=== PATIENT | male | born 1950 | race Caucasian/White ===

== ENCOUNTER 2016-11-09 19:45 | Observation (INO) | payer MEDICARE, OTHER ==
--- NOTE | 2016-11-09 20:40 | ED.PDOC ---
History of Present Illness - General Chief Complaint: Head Injury Stated Complaint: head injury Time Seen by Provider: 11/09/16 20:39 Source: patient, RN notes reviewed, Vital Signs reviewed Exam Limitations: no limitations Additional Information: Stated that he was head butted by his cow this afternoon - History of Present Illness Occurred: this morning Severity: moderate Head Injury Location: occipital Method of Injury: other - patient was head butted by his cow behind him [place] his farm Loss of Consciousness: no loss of consciousness Associated Symptoms: headaches, other - neck pain Allergies/Adverse Reactions: Allergies NO KNOWN ALLERGY Allergy (Verified 07/28/15 19:03) Home Medications: Ambulatory Orders Acetaminophen W/ Codeine [Tylenol W/ CODEINE #3] 1 ea PO Q4-6H PRN #30 Methocarbamol [Robaxin] 500 mg PO TID PRN #20 tab 07/28/15 Naproxen Sodium [Naprelan] 375 mg PO BID #14 tab 07/28/15 Omeprazole [Prilosec] 40 mg PO DAILY #10 cap 07/28/15 Review of Systems - Review of Systems Constitutional: States: no symptoms reported EENTM: States: no symptoms reported Respiratory: States: no symptoms reported Cardiology: States: no symptoms reported Gastrointestinal/Abdominal: States: no symptoms reported Genitourinary: States: no symptoms reported Musculoskeletal: States: see HPI - chronic, neck pain Skin: States: no symptoms reported Neurological: States: see HPI Endocrine: States: no symptoms reported, intolerance to heat Past Medical History (General) - Patient Medical History Hx Diabetes: No Hx MRSA: No MRSA Source:: Wound Surgical History: cholecystectomy, other - neck,foot,knee - Vaccination History Hx Tetanus, Diphtheria Vaccination: - unsure Hx Influenza Vaccination: No - Female History Patient : No Family Medical History - Family History Father Family History: No Known Living Status: Physical Exam - Physical Exam General Appearance: Alert, No apparent distress, Other - speech fluent Head Injury: swelling, other - scalp laceration occiput Eye Exam: bilateral normal ENT Exam: hearing grossly normal, no evidence of ENT injury, no dental injury Neck Exam: painful range of motion - lateral flexion, paraspinous muscle tender , spinous processes tender Cardiovascular/Respiratory: no JVD, normal breath sounds, no respiratory distress Gastrointestinal/Abdominal: normal bowel sounds, non tender, soft, no organomegaly Back Exam: normal inspection, no CVA tenderness, no vertebral tenderness Extremity: normal range of motion, non-tender, normal inspection 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, 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, normal speech, PERRL Coordination/Gait: normal finger to nose, normal gait, negative Romberg's sign Motor/Sensory: no motor deficit, no sensory deficit, no pronator drift - [place] Coma Score Best Eye Response ([place]): (4) open spontaneously Best Verbal Response (Cee): (5) oriented Best Motor Response (Cee): (6) obeys commands Cee Total: 15 Progress - EKG/XRAY/CT CT Ordered: Yes - smallmeningioma or subdural hematoma 1cm x0.3 cm Departure - Departure Clinical Impression: Contusion of head Qualifiers: Qualifier Code: (S00.83XA) Contusion of other part of head, initial encounter Headache, post-traumatic Qualifiers: Qualifier Code: (G44.319) Acute post-traumatic headache, not intractable Blunt head injury Qualifiers: Qualifier Code: (S09.8XXA) Other specified injuries of head, initial encounter Time of Disposition: 23:18 - D/W DR. Gonzales -Hospitalist Disposition: Admit Patient Condition: Good Departure Forms: ED Discharge - Pt. Copy, Patient Portal Self Enrollment Referrals: Federico Mondragon MD [Primary Care Provider] - 1-2 Weeks Home Medications: Ambulatory Orders Acetaminophen W/ Codeine [Tylenol W/ CODEINE #3] 1 ea PO Q4-6H PRN #30 Methocarbamol [Robaxin] 500 mg PO TID PRN #20 tab 07/28/15 Naproxen Sodium [Naprelan] 375 mg PO BID #14 tab 07/28/15 Omeprazole [Prilosec] 40 mg PO DAILY #10 cap 07/28/15
--- NOTE | 2016-11-09 20:42 | CT ---
EXAM DESCRIPTION: CT CERVICAL SPINE WITHOUT IV CONTRAST CLINICAL HISTORY: 66-year-old male struck by cow from behind, head hit gate COMPARISON: None. TECHNIQUE: CT cervical spine without contrast. Multiplanar reformatted images were provided. FINDINGS: There is normal alignment of the cervical spine without fracture or subluxation. The facets are normal in alignment bilaterally. The posterior elements including the spinous processes are intact. There is mild straightening of the cervical spine which may be secondary to positioning for the examination. Morphology and attenuation of the vertebral bodies and intervertebral disc spaces is compatible with moderate to severe multilevel degenerative change. Postoperative changes are identified including anterior fusion cervical hardware with bilateral screws traversing the vertebral bodies of C2 C3, C4 and C5 levels. Intervertebral spacing material present with partial vertebral body fusion with residual severe neural foraminal narrowing present at the C2-3. , C4-5 levels on the left with severe degenerative facet change. Severe neural foraminal narrowing secondary to uncovertebral joint hypertrophy present at the C3-4, C4-5 levels on the right. Severe neural foraminal narrowing also noted bilaterally at the C5-6 level. Multilevel facet fusion present. Overall slender appearance of the central spinal canal with posterior osseous spurring resulting in multilevel moderate to severe neural foraminal narrowing. The pre-and paravertebral soft tissues are within normal limits. The airway is patent. Extraspinal imaging is within normal limits. The left lung apex bulla noted. IMPRESSION: 1. Mild straightening of the cervical spine, postoperative and degenerative changes as detailed above. 2. No fracture or acute subluxation. Electronically signed by: Katrina Johnson MD 11/09/2016 20:40
[2016-11-09] MEDS ORDERED: TETANUS,DIPHTHERIA,PERTUSSIS 1 EA SYG IM ONE (20:57)
--- NOTE | 2016-11-09 21:02 | CT ---
EXAM DESCRIPTION: CT HEAD WITHOUT IV CONTRAST CLINICAL HISTORY: struck by cow from behind, head hit gate COMPARISON: None Available. TECHNIQUE: Contiguous axial images of the brain were obtained without the administration of intravenous contrast. FINDINGS: There is no mass effect. There is atherosclerosis. There is mild generalized atrophy. Vague areas of low attenuation in the periventricular white matter are nonspecific but suggestive of small vessel disease. There is soft tissue swelling/hematoma within the right posterior scalp. 1 x 0.3 cm focal area of increased attenuation adjacent to the falx, image 25 could represent volume averaging with small vessel. Possibility of a small meningioma cannot be excluded. Small subdural hematoma is considered less likely however not excluded. Short-term followup recommended. Ventricular system is within normal limits. There is adequate wolf-white matter differentiation. There is no skull fracture. Mucoperiosteal thickening of the maxillary sinuses, left greater than right, and left ethmoid sinus compatible with chronic sinusitis changes. IMPRESSION: 1 x 0.3 cm focal area of increased attenuation adjacent to the falx, image 25 could represent volume averaging with small vessel. Possibility of a small meningioma cannot be excluded. Small subdural hematoma is considered less likely however not excluded. Short-term followup recommended. Electronically signed by: Gerson Martinez 11/09/2016 21:00
[2016-11-09] MEDS ORDERED: HYDROcodone 7.5MG/APAP 325MG 1 EA TAB PO ONE (23:25)
[2016-11-09] MEDS ORDERED: LEVALBUTEROL NEBS 0.63 MG/3 ML VIAL INH PRN (23:33)
[2016-11-09] MEDS ORDERED: SODIUM CHLORIDE 0.9% (FLUSH) 10 ML SYG IV PRN (23:33)
[2016-11-09] MEDS ORDERED: MAGNESIUM HYDROXIDE 30 ML UD PO PRN (23:33)
[2016-11-09] MEDS ORDERED: HYDROcodone 7.5MG/APAP 325MG 1 EA TAB PO PRN (23:41)
--- NOTE | 2016-11-09 23:43 | PCM.CORE ---
Physician DVT/VTE - 3-4 High Risk Treatments: Sequential Compression Device
[2016-11-09] MEDS ORDERED: IV SET AND CAP CHANGE INJ INJ SCH (23:45)
[2016-11-09] MEDS: SODIUM CHLORIDE 0.9% (FLUSH) 10 ML SYG IV SCH (23:46)
[2016-11-10] MEDS ORDERED: OMEPRAZOLE CAP 20 MG CAP PO SCH (06:30)
[2016-11-10] MEDS ORDERED: traMADol HCL 50 MG TAB PO PRN (07:40)
[2016-11-10] MEDS: HYDROcodone 10MG/APAP 325MG 1 EA TAB PO PRN ×2 (08:22→12:41)
[2016-11-10] MEDS: SODIUM CHLORIDE 0.9% (FLUSH) 10 ML SYG IV SCH (08:28)
--- NOTE | 2016-11-10 10:28 | MRI ---
EXAM DESCRIPTION: MRI brain without contrast CLINICAL HISTORY: Blunt head injury. Headache. Abnormal CT COMPARISON: CT dated 11/09/2016 TECHNIQUE: Multi planar, multi sequence MRI evaluation of the brain FINDINGS: No intracranial hemorrhage, infarction, or parenchymal mass lesion. Normal wolf-white matter differentiation. No restricted diffusion. Mild cerebral white matter disease deep and periventricular white matter, nonspecific likely chronic microvascular ischemia. There is a focal density along the falx to the left of midline adjacent to the medial left frontal lobe which may be a small meningioma. This is of no clinical significance and measures about 7 mm in greatest dimension Ventricles are normal in size and configuration Normal flow voids are present in the major intracranial arteries and dural venous sinuses No abnormality is seen along the course of the cranial nerves. Normal appearance of the temporal bones Orbits are grossly normal Circumferential mucosal thickening bilateral maxillary sinuses with congealed secretions and minimal fluid. Mucous retention cysts also seen left maxillary sinus. Mucosal thickening seen in the ethmoid air cells to the left of midline and in the right sphenoid sinus No evidence of calvarial fracture. Subgaleal/scalp hematoma right parietal and midline calvarium. Hematoma measures approximately 6.6 x 4.6 x 1 cm IMPRESSION: Mild white matter disease, nonspecific likely chronic microvascular ischemia. No acute traumatic injury of the brain Scalp/subgaleal hematoma high right parietal Extra -axial mass lesion, 7 mm, compatible with a small meningioma, along the falx to the left of midline Paranasal sinus disease Electronically signed by: Rm Masterson MD 11/10/2016 10:26
[2016-11-10 12:52] VITALS: BP 170/92; TEMP 98; O2SAT 97
--- NOTE | 2016-11-10 13:24 | SSS ---
DATE OF ADMISSION: 11/09/16 DATE OF DISCHARGE: 11/10/16 DISCHARGE DIAGNOSIS: 1. Blunt head injury with transient loss of consciousness. 2. Severe neck pain with advanced degenerative changes of the cervical spine with fusion as well as surgical fusion performed aggravated by the injury. 3. Possible small meningioma noted on MRI. 4. History of hypertension. HISTORY OF PRESENT ILLNESS: This 66-year-old, white male was placed in the hospital for overnight observation after being hit on the back of his head forcefully by a running small cow. He subsequently went forward and did hit his head again on metal fence and gait with transient loss of consciousness for one or two minutes. He came to the Emergency Room by private vehicle. He was otherwise able to look around and communicate the history, though having significant posterior head/scalp pain from the hematoma, but also severe neck pain from his previous fusion and the advanced degenerative changes noted there. Because of the severity of the pain and the requirements to have a repeat evaluation a few hours later to check on the presence of an intracerebral bleed, the patient was placed in the hospital overnight for observation and management. PAST MEDICAL HISTORY: 1. Hypertension. 2. Chronic obstructive pulmonary disease. 3. Allergies. PAST SURGICAL HISTORY: 1. Left knee. 2. Left foot. 3. Appendectomy. 4. Cholecystectomy. 5. Cervical spine fusion in 2007. CURRENT MEDICATIONS: Please refer to nursing notes for a list of medicines currently verified to be taken by the patient. ALLERGIES: NO KNOWN DRUG ALLERGIES, JUST SEASONAL ALLERGIES. FAMILY HISTORY: Negative. SOCIAL HISTORY: He has worked in the [employer] business and more recently in the [employer] business. He smokes one pack of cigarettes per day, down from three packs of cigarettes per day for many years and again encouraged to stop. REVIEW OF SYSTEMS: GENERAL: No significant weight change, fever or chills. HEENT: No hearing or visual disturbances. Significant blunt head injury noted prior to arrival. NECK: Severe pain with history of fusion and advanced degenerative changes. LUNGS: No significant shortness of breath, but he does have occasional cough with no significant hemoptysis. CARDIOVASCULAR: No significant palpitations or chest pains. GASTROINTESTINAL: No nausea or vomiting. No diarrhea or blood in stools. GENITOURINARY: No dysuria. EXTREMITIES: Fairly well formed with good range of motion. NEUROLOGIC: Transient loss of consciousness of about 1-1/2 to 2 minutes noted after the blunt head injury. He subsequently became awake with normal [place] coma score and no focal neurologic deficits evident. PHYSICAL EXAMINATION: VITAL SIGNS: Afebrile. Pulse 95. Blood pressure 140/73 on discharge. Room air saturation 97%. Weight 92 kg. GENERAL: The patient is awake, alert and oriented. He is holding his head in an effort to try to stabilize his neck and we will try to get a neck collar eventually to assist with splinting of the cervical spine. HEENT: Pupils are equal, regular, and reactive. Hearing appears to be fairly normal. NECK: Decreased range of motion from previous spinal fusion surgeries and degenerative changes. No paresthesias or radicular discomfort at this time down the arms or down the back to the legs. LUNGS: Diminished breath sounds with occasional rhonchi in the lateral lung thorpe. CARDIOVASCULAR: Heart with regular rhythm without any significant gallops. ABDOMEN: Generally soft with no organomegaly, masses or tenderness. EXTREMITIES: Fairly well-formed. No significant injuries, no edema. Peripheral pulses are decreased. NEUROLOGIC: The patient is otherwise awake, alert and oriented though in significant pain with his neck being the source of his pain as well as the scalp on the back of his head. The patient is able to move all extremities. CT scan failed to reveal any significant hemorrhage into the brain or on the outside of the brain. There was a slight abnormality at the area of the falx with what could be a meningioma and will have followup the next day with MRI. LABORATORY: White count 9,300, hemoglobin 13.8. Chemistries show potassium 3.6 , CO2 28, BUN 13, creatinine 1.08, glucose 120 nonfasting in the morning. Liver enzymes normal. Urinalysis shows trace of hematuria. No cultures obtained. RADIOLOGY: CT scan of the cervical spine reveals advanced degenerative changes with fusion surgically and spontaneous of his spine. No fractures noted. Head CT does reveal a defect on the falx of approximately 1 by 0.3 cm, possible meningioma. No acute bleeds evident. Brain MRI without contrast is performed on the morning of discharge and does reveal a meningioma at the area of the falx showing an extraaxial mass lesion about 7 mm in size, compatible with a small meningioma to the left of midline. No other acute evidence of traumatic injury to the brain noted. HOSPITAL COURSE: The patient was still having significant neck pain though improved and getting some rest prior to discharge. The extent of his examination and the results are given to the patient so he will able to review them with Dr. Mondragon when he sees him. He was ready to continue with outpatient management and followup. PLAN: The patient is discharged home. His is present who will assist with his ongoing care. He will have followup with Dr. Mondragon in about a week. To his home medications are added [place] 10/325 to be taken 1/2 to 1 tablet every 6 hours as needed for severe pain. He is to be off work until cleared by Dr. Mondragon. Try to custom fit a soft collar for neck support or use the previous neck support from surgery to assist with splinting of the neck. Return if evidence of nausea, vomiting, weakness, difficulty speaking or walking and irregular pulses are noted. Return if not improving. #[id number] [facility]
== END 2016-11-10 13:30 | disposition home or self-care (01) ==
LOC: ER 19:45 → MS 23:34
PROVIDERS: ADMIT Emergency Medicine; ATTEND Emergency Medicine
DX: S00.03XA Contusion of scalp, initial encounter (principal); S06.9X1A Unspecified intracranial injury with loss of consciousness of 30 minutes or less, initial encounter; R40.2412 Glasgow coma scale score 13-15, at arrival to emergency department; G44.319 Acute post-traumatic headache, not intractable; M54.2 Cervicalgia; M47.812 Spondylosis without myelopathy or radiculopathy, cervical region; I10 Essential (primary) hypertension; J44.9 Chronic obstructive pulmonary disease, unspecified; F17.210 Nicotine dependence, cigarettes, uncomplicated; Z23 Encounter for immunization; W55.22XA Struck by cow, initial encounter; Y93.K9 Activity, other involving animal care; Y92.79 Other farm location as the place of occurrence of the external cause; Z79.899 Other long term (current) drug therapy; Z98.1 Arthrodesis status; Z90.49 Acquired absence of other specified parts of digestive tract
CPT/HCPCS: 36415; 70450; 70551; 72125; 80053; 81001; 85025; 94760; G0378